=== PATIENT | female | born 1995 | race Caucasian/White ===

== ENCOUNTER 2016-06-07 15:08 | Emergency (ER) | payer OTHER ==
[~2016-06-07] VITALS: Ht 162.6 cm; Wt 117.0 kg
[~2016-06-07 15:08] MED LIST: PREN0.01 PO
[2016-06-07 15:10] VITALS: BP 129/88; PULSE 100; RESP 15; TEMP 97.8; O2SAT 97
[2016-06-07] MEDS ORDERED: PREN29TA PO (15:21)
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
[2016-06-07] MEDS ORDERED: ORPHENADRINE INJ 60 MG/2 ML AMP IM ONE (16:15)
[2016-06-07] MEDS ORDERED: KETOROLAC TROMETHAMINE 60 MG/2 ML (IM) VIAL IM ONE (16:15)
[2016-06-07] MEDS ORDERED: ONDANSETRON ODT 4 MG TAB PO ONE (16:30)
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
[2016-06-07] MEDS ORDERED: IBUP800T23 PO (16:58)
[2016-06-07] MEDS ORDERED: CYCL1TAB29 PO (16:58)
== END 2016-06-07 17:49 | disposition home or self-care (01) ==
LOC: PHEFT 15:08
DX: R51 Headache (principal); S90.32XA Contusion of left foot, initial encounter; V47.0XXA Car driver injured in collision with fixed or stationary object in nontraffic accident, initial encounter; Y93.89 Activity, other specified; Y92.89 Other specified places as the place of occurrence of the external cause; Y99.8 Other external cause status
CPT/HCPCS: 73610; 73630; 96372; 99284; E0113; J1885; J2360; L1906

== ENCOUNTER 2016-08-17 00:15 | Emergency (ER) | payer OTHER ==
[~2016-08-17] VITALS: Ht 160 cm; Wt 118.2 kg
[~2016-08-17 00:15] MED LIST changes: +CYCL1TAB29 PO; +IBUP800T23 PO; -PREN0.01 PO; +PREN29TA PO
[2016-08-17 00:18] VITALS: BP 125/60; PULSE 78; RESP 18; TEMP 100.2; O2SAT 97
[2016-08-17 02:44] VITALS: RESP 18; O2SAT 99
[2016-08-17 02:57] LABS: AUTOMATED NEUTROPHIL # 5.9 TH/MM3 (1.8-7.7); BASOPHIL % 0.3 % (0.0-2.0); EOSINOPHIL % 0.4 % (0.0-4.0); HEMATOCRIT 38.2 % (35.0-46.0); HEMO FLAGS DIFF FINAL; LYMPH % 16.3 % (9.0-44.0); LYMPHOCYTE # 1.3 TH/MM3 (1.0-4.8); MEAN CELL VOLUME 88.6 FL (80.0-100.0); MEAN CORPUSCULAR HEMOGLOBIN 29.4 PG (27.0-34.0); MEAN CORPUSCULAR HGB CONC 33.1 % (32.0-36.0); PLATELET COUNT 222 TH/MM3 (150-450); RED BLOOD COUNT 4.31 MIL/MM3 (4.00-5.30); RED CELL DISTRIBUTION WIDTH 13.4 % (11.6-17.2)
[2016-08-17 03:02] LABS: BLOOD, URINE NEG (NEG); GLUCOSE,URINE NEG (NEG); KETONE, URINE NEG (NEG); MUCUS URINE FEW /lpf (OCC); NITRITE,URINE NEG (NEG); PH, URINE 5.5 (5.0-8.5); SQUAMOUS EPITHELIAL CELL URINE 3 /hpf (0-5); URINE COLOR YELLOW (YELLW/STRAW)
[2016-08-17 03:03] LABS: COMMENT (UR) CULT NOT INDICATED; CULTURE IF INDICATED CULT NOT INDICATED
[2016-08-17 03:23] LABS: ALT (GPT) 20 U/L (9-42); ANION GAP 9 MEQ/L (5-15); AST (GOT) 18 U/L (16-38); BICARBONATE 24.9 MEQ/L (21.0-32.0); BLOOD UREA NITROGEN 10 MG/DL (7-18); CHLORIDE 104 MEQ/L (98-107); GLOMERULAR FILTRATION RATE 98 ML/MIN (>89); MAGNESIUM 2.2 MG/DL (1.5-2.5); POTASSIUM 3.7 MEQ/L (3.5-5.1); SODIUM (NA) 138 MEQ/L (136-145)
[2016-08-17 03:26] LABS: ALKALINE PHOSPHATASE 55 U/L (45-117); TOTAL BILIRUBIN ADULT 0.3 MG/DL (0.2-1.0)
[2016-08-17] MEDS ORDERED: IOHEXOL 350 MG/ML 10 ML VIAL (for RAD DIAG) IV ONE (03:52)
--- NOTE | 2016-08-17 04:13 | RADRPT ---
EXAM DATE/TIME: 08/17/2016 03:52 [facility] COMPARISON: No previous studies available for comparison. INDICATIONS : Upper quadrant abdominal pain. IV CONTRAST: 95 cc Omnipaque 350 (iohexol) IV ORAL CONTRAST: No oral contrast ingested. RADIATION DOSE: 22.64 CTDIvol (mGy) MEDICAL HISTORY : None SURGICAL HISTORY : section. ENCOUNTER: Initial ACUITY: 1 day PAIN SCALE: 5/10 LOCATION: Bilateral upper quadrant TECHNIQUE: Volumetric scanning of the abdomen and pelvis was performed. Using automated exposure control and ad justment of the mA and/or kV according to patient size, radiation dose was kept as low as reasonably achievable to obtain optimal diagnostic quality images. FINDINGS: CT Abdomen: The liver, spleen, pancreas, kidneys, adrenals are unremarkable. There is no evidence for any appreciable pathological adenopathy, free fluid, or bowel obstruction. CT pelvis: There is no evidence for mass, abscess formation, or any significant adenopathy within the pelvis. The left ovary measures 6.7 cm in size and has cysts within it with slight fluid within the endometrial cavity. CONCLUSION: Left ovarian cysts, otherwise unremarkable. Lamine Rodriguez MD on August 17, 2016 at 4:10 Board Certified Radiologist. This report was verified electronically.
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
[2016-08-17] MEDS ORDERED: SODIUM CHLOR 0.9% 1000 ML INJ 1,000 ML IV ONE (04:30)
[2016-08-17] MEDS ORDERED: PANTOPRAZOLE SODIUM 40 MG VIAL IV PUSH ONE (04:30)
[2016-08-17] MEDS ORDERED: ONDANSETRON HCL 4 MG/2 ML VIAL IV ONE (04:30)
== END 2016-08-17 06:45 | disposition home or self-care (01) ==
LOC: NEPE 00:15
DX: R10.13 Epigastric pain (principal); R51 Headache; R20.2 Paresthesia of skin; R42 Dizziness and giddiness; R19.7 Diarrhea, unspecified
CPT/HCPCS: 74177; 80053; 81001; 83690; 83735; 84703; 85025; 86140; 96361; 96374; 96375; 99285; C9113; J2405; J7030; Q9967

== ENCOUNTER 2017-08-02 14:32 | Emergency (ER) | payer OTHER ==
[~2017-08-02 14:32] MED LIST changes: -CYCL1TAB29 PO; -IBUP800T23 PO
== END 2017-08-02 16:02 | disposition left against medical advice (07) ==
LOC: NED 14:32
DX: Z53.21 Procedure and treatment not carried out due to patient leaving prior to being seen by health care provider (principal)
CPT/HCPCS: 99281